=== PATIENT | female | born 1960 | race Caucasian/White ===

== ENCOUNTER 2019-03-26 17:15 | Emergency (ER) | payer BC, OTHER ==
[2019-03-26 17:49] VITALS: BP 122/87; PULSE 66; RESP 18; TEMP 98
[2019-03-26] MEDS ORDERED: DIPH,PERTUS(ACELL)TETVAC-LF 0.5 ML VIAL IM ONE (18:15)
--- NOTE | 2019-03-26 18:15 | ED ---
Wound/Laceration HPI - General Chief Complaint: Needlestick/Exposure Stated Complaint: [facility] - needlestick Time Seen by Provider: 03/26/19 17:33 Source: patient Mode of arrival: ambulatory Limitations: no limitations - History of Present Illness Initial Comments: 58yo no known infectious diseases presenting for cc of needles stick the left index finger just prior to arrival. Patient states stuck with diabetic needle. Patient passes stick occurred from going through personal belongs. Patient washed area. Patient states patient has no known infectious diseases on record, long time resident at [facility]. Patient has no other complaints. Appears well on arrival. - Related Data Allergies Allergy/AdvReac Type Severity Reaction Status Date / Time codeine AdvReac Chest Pain Verified 03/26/19 18:26 Sulfa (Sulfonamide AdvReac Rash/Hives Verified 03/26/19 18:25 Antibiotics) Review of Systems ROS Statement: Those systems with pertinent positive or pertinent negative responses have been documented in the HPI. ROS Other: All systems not noted in ROS Statement are negative. Past Medical History Past Medical History: No Reported History History of Any Multi-Drug Resistant Organisms: None Reported Past Surgical History: Section Past Psychological History: No Psychological Hx Reported Smoking Status: Former smoker Past Alcohol Use History: None Reported Past Drug Use History: None Reported General Exam - General Exam Comments Initial Comments: General: The patient is awake and alert, in no distress, and does not appear acutely ill. Eye: Pupils are equal, round and reactive to light, extra-ocular movements are intact. No nystagmus. There is normal conjunctiva bilaterally. No signs of icterus. Neurological: A&O x 3. CN II-XII intact grossly, There are no obvious motor or sensory deficits. Coordination appears grossly intact. Speech is normal. Skin: Skin is warm and dry and no rashes or lesions are appreciated, possible small lesions that is not visible. no scabbing on inspection the the index fingers. Psychiatric: Cooperative, appropriate mood & affect, normal judgment. Limitations: no limitations Course Vital Signs 03/26/19 03/26/19 17:46 18:29 Temperature 98 F 98 F Pulse Rate 66 66 Respiratory 18 18 Rate Blood Pressure 122/87 122/87 O2 Sat by Pulse 97 97 Oximetry Medical Decision Making - Medical Decision Making 58 presented for needle stick. No previous history. Patient that was the source has no known past medical history of HIV or hepatitis. Patient's blood tested patient gave verbal consent for HIV testing. Patient does not want HIV prophylaxis. Patient is aware that she needs repeat HIV/Hepatitis testing in 3 months. Patient had tetanus updated and was discharged with PCP f/u. - Lab Data Lab Results 03/26/19 Range/Units 18:10 Hep Bs Antigen Non-Reactive (Non-Reactive) Hep Bs Antibody Non-Reactive (Non-Reactive) Hep Bs Antibody, Quant 3.5 mIU/mL Hep C IgG Ab Non-Reactive (Non-Reactive) Disposition Clinical Impression: Needlestick injury accident Disposition: HOME SELF-CARE Condition: Good Instructions (If sedation given, give patient instructions): Needle Stick Injur ies (ED) Additional Instructions: Please use medication as discussed. Please follow-up with family doctor in the next 2 days, repeat HIV, hepatitis panel in 2-3 months. Please return to emergency room if the symptoms increase or worsen or for any other concerns. Is patient prescribed a controlled substance at d/c from ED?: No Referrals: Amarilis Pabon MD [Primary Care Provider] - 1-2 days Time of Disposition: 18:14
[2019-03-26 23:38] LABS: Hepatitis B Surface AB- Quant 3.5 mIU/mL; Hepatitis B Surface Antibody Non-Reactive (Non-Reactive); Hepatitis B Surface Antigen Non-Reactive (Non-Reactive); Hepatitis C IgG Antibody Non-Reactive (Non-Reactive)
[2019-03-27 06:45] LABS: HIV 1 AB Non-Reactive (Non-Reactive); HIV 2 AB Non-Reactive (Non-Reactive); HIV AB P24 Non-Reactive (Non-Reactive); HIV P24 AG Non-Reactive (Non-Reactive)
== END 2019-03-26 18:33 | disposition home or self-care (01) ==
LOC: EC 17:15
DX: S69.92XA Unspecified injury of left wrist, hand and finger(s), initial encounter (principal); Z87.891 Personal history of nicotine dependence; Z88.2 Allergy status to sulfonamides; Z88.5 Allergy status to narcotic agent; Z23 Encounter for immunization; W46.0XXA Contact with hypodermic needle, initial encounter; Y93.89 Activity, other specified; Y92.69 Other specified industrial and construction area as the place of occurrence of the external cause; Y99.0 Civilian activity done for income or pay
CPT/HCPCS: 36415; 86706; 86803; 87340; 87390; 90471; 90715; 99283

== ENCOUNTER → 2020-08-15 | Outpatient (CLI) | payer OTHER ==
--- NOTE | 2020-08-18 11:14 | MM ---
Reason for exam: screening (asymptomatic). Last mammogram was performed 8 years and 7 months ago. History: Patient is postmenopausal. Took hormonal contraceptives for 10 years. Physical Findings: A clinical breast exam by your physician is recommended on an annual basis and results should be correlated with mammographic findings. MG 3D Screening Mammo W/Cad Bilateral CC and MLO view(s) were taken. Prior study comparison: January 21, 2012, bilateral digital screening mammo w/CAD. There are scattered fibroglandular densities. ASSESSMENT: Negative, BI-RAD 1 RECOMMENDATION: Routine screening mammogram of both breasts in 1 year.
== END | disposition home or self-care (01) ==
LOC: RADMAMWWP 11:41
PROVIDERS: ATTEND Family Medicine
DX: Z12.31 Encounter for screening mammogram for malignant neoplasm of breast (principal); Z79.3 Long term (current) use of hormonal contraceptives; Z78.0 Asymptomatic menopausal state
CPT/HCPCS: 77063; 77067

== ENCOUNTER → 2020-08-15 | Outpatient (CLI) | payer OTHER ==
--- NOTE | 2020-08-15 12:45 | US ---
EXAMINATION TYPE: US transvaginal DATE OF EXAM: 08/15/2020 COMPARISON: NONE CLINICAL HISTORY: N95.9 Unspecified menopausal and perimenopausal di. Date of LMP: 6 years prior EXAM MEASUREMENTS: Uterus: 6.7 x 3.2 x 4.4 cm Endometrial Stripe: 0.4 cm Right Ovary: not seen, due to overlying bowel gas/atrophy Left Ovary: not seen, due to overlying bowel gas/atrophy 1. Uterus: probable fibroid measuring 0.9 x 0.9 x 1.3cm 2. Endometrium: wnl 3. Right Ovary: not seen, due to overlying bowel gas/atrophy 4. Left Ovary: not seen, due to overlying bowel gas/atrophy 5. Bilateral Adnexa: wnl 6. Posterior cul-de-sac: wnl IMPRESSION: 1. 1.3 cm subserosal lesion of the uterus most likely represents a leiomyoma. 2. Neither ovary could be seen.
== END | disposition home or self-care (01) ==
LOC: RADUSWWP 11:37
PROVIDERS: ATTEND Specialist
DX: N95.9 Unspecified menopausal and perimenopausal disorder (principal)
CPT/HCPCS: 76830

== ENCOUNTER → 2021-11-09 | Outpatient (CLI) | payer OTHER ==
--- NOTE | 2021-11-13 18:27 | MM ---
Reason for Exam: Screening (asymptomatic). Last mammogram was performed 1 year(s) and 3 month(s) ago. Patient History: Menarche at age 14. First Full-Term at age 20. Postmenopausal. Patient used Hormonal Contraceptives for 10 years. Currently using Estrogen and Progesterone, starting at age 61. Risk Values: Shilpi 5 year model risk: 1.0%. NCI Lifetime model risk: 5.3%. Prior Study Comparison: 01/21/2012 Bilateral Screening Mammogram, [facility]. 01/27/2012 Left Diagnostic Mammogram, [facility]. 08/15/2020 Bilateral Screening Mammogram, [facility]. Tissue Density: The breast tissue is almost entirely fat. Findings: Analyzed By CAD. There is no suspicious group of microcalcifications or new suspicious mass in either breast. Overall Assessment: Negative, BI-RAD 1 Management: Screening Mammogram of both breasts in 1 year. A clinical breast exam by your physician is recommended on an annual basis and results should be correlated with mammographic findings. Electronically signed and approved by: Aryan Franco DO
== END | disposition home or self-care (01) ==
LOC: RADMAMWWP 15:39
PROVIDERS: ATTEND Obstetrics & Gynecology
DX: Z12.31 Encounter for screening mammogram for malignant neoplasm of breast (principal); Z78.0 Asymptomatic menopausal state
CPT/HCPCS: 77063; 77067

== ENCOUNTER → 2022-12-03 | Outpatient (CLI) | payer OTHER ==
--- NOTE | 2022-12-03 12:39 | BD ---
EXAMINATION TYPE: Axial Bone Density DATE OF EXAM: 12/03/2022 CLINICAL HISTORY: 62 years old Female. ICD-10 CODE: Z13.820 SCREENING FOR OSTEOPOROSIS Height: 65in Weight: 159lb FRAX RISK QUESTIONS: Secondary Osteoporosis: RISK FACTORS HISTORY OF: Active: yes Postmenopausal woman: yes Take estrogen and/or progesterone medications: yes about 7 years ago, none current How long: about 6 weeks MEDICATIONS: Additional Medications: none Additional History: EXAM MEASUREMENTS: Bone mineral densitometry was performed using the Comparisim System. Bone mineral density as measured about the Lumbar spine is: ----- L1-L4(G/cm2): 1.027 T Score Values are as follows: ----- L1: -0.7 ----- L2: -1.8 ----- L3: -1.6 ----- L4: -1.0 ----- L1-L4: -1.3 Z Score Values are as follows: ----- L1: 0.3 ----- L2: -0.8 ----- L3: -0.6 ----- L4: 0.0 ----- L1-L4: -0.2 First dexa at [facility] Bone mineral density about the R hip (g/cm2): 0.785 Bone mineral density about the L hip (g/cm2): 0.870 T Score values are as follows: -----R Neck: -1.2 -----L Neck: -0.9 -----R Total: -1.8 -----L Total: -1.1 Z Score values are as follows: -----R Neck: -0.1 -----L Neck: 0.2 -----R Total: -1.0 -----L Total: -0.3 FRAX%s: The graph provided illustrates a 7.7% chance for a major osteoporotic fx and a 0.5% chance fo r the hips probability for fx in 10 years time. IMPRESSION: Osteopenia (T Score between -2.5 and -1). There is slightly increased risk of fracture and the patient may be considered for treatment. Re-Screen 2-5 years. NOTE: T-SCORE=SD OF THE YOUNG ADULT MEAN.
== END | disposition home or self-care (01) ==
LOC: RADBDWWP 11:20
PROVIDERS: ATTEND Family Medicine
DX: Z13.820 Encounter for screening for osteoporosis (principal); M85.89 Other specified disorders of bone density and structure, multiple sites
CPT/HCPCS: 77080

== ENCOUNTER → 2023-08-03 | Outpatient (CLI) | payer BC ==
--- NOTE | 2023-08-12 22:35 | CT ---
EXAMINATION TYPE: CT pelvis wo con DATE OF EXAM: 08/03/2023 COMPARISON: Outside radiograph 06/14/2023 HISTORY: 62-year-old female M46.1 Sacroilitis, pelvic fracture TECHNIQUE: Contiguous axial scanning of the pelvis without IV contrast. Coronal and sagittal reconstr uctions performed. 3-D reconstructions generated on a dedicated independent workstation. CT DLP: 294.20 mGycm Automated exposure control for dose reduction was used. FINDINGS: Hypertrophic facet arthropathy lower lumbar spine with bilateral L5 pars defects and a grade 1 asha listhesis at L5-S1. Moderate to severe degenerative disc disease present here at L5-S1. SI joints appear symmetric and intact as does the sacrum and pelvis. Some vacuum of the joint probabl y related to distraction or very early degenerative change. No subarticular erosions are seen. There is severe degenerative change at the right hip with complete loss of superolateral and axial jeri int space with subchondral sclerosis, extensive cystic change, and bulky marginal spurring. Moderate degenerative change left hip with axial joint space loss and subchondral cystic change. No acute fracture or dislocation is seen. No sizable joint effusion though small effusion on the righ t is likely reactive. Generalized colonic diverticulosis in the visualized lower abdomen and pelvis. Uterus and both ovarie s are visualized. IMPRESSION: 1. SEVERE RIGHT HIP OA. MODERATE AT THE LEFT HIP. 2. NO EROSIONS OR OTHER CT FINDINGS OF SACROILIITIS. VACUUM IN THE JOINT SPACE COULD BE DUE TO JOINT DISTRACTION OR VERY EARLY DEGENERATIVE CHANGE. 3. BILATERAL L5 PARS DEFECTS WITH GRADE 1 ANTEROLISTHESIS L5-S1 AND MODERATE TO SEVERE DEGENERATIVE D ISC DISEASE HERE. 4. PARTIALLY VISUALIZED GENERALIZED COLONIC DIVERTICULOSIS.
== END | disposition home or self-care (01) ==
LOC: RADCTMAIN 08:49
PROVIDERS: ATTEND Neurological Surgery
DX: M16.0 Bilateral primary osteoarthritis of hip (principal); M46.1 Sacroiliitis, not elsewhere classified; M43.17 Spondylolisthesis, lumbosacral region; M51.37 Other intervertebral disc degeneration, lumbosacral region; K57.30 Diverticulosis of large intestine without perforation or abscess without bleeding
CPT/HCPCS: 72192